=== PATIENT | male | born 1955 | race Caucasian/White ===

== ENCOUNTER 2020-02-08 16:16 | Emergency (ER) | payer OTHER ==
[~2020-02-08] VITALS: Ht 172.7 cm; Wt 65.9 kg
[2020-02-08 16:45] LABS: BASOPHILS % (AUTO) 0 % (0-10); EOSINOPHILS % (AUTO) 0 % (0-10); HEMATOCRIT 43 % (40-54); HEMOGLOBIN 14.4 G/DL (13.3-17.7); LYMPHOCYTES # (AUTO) 0.9 X 10^3 (1.0-4.0); LYMPHOCYTES % (AUTO) 6 % (12-44); MEAN CORPUSCULAR HEMOGLOBIN 32 PG (25-34); MEAN CORPUSCULAR HGB CONC 34 G/DL (32-36); MEAN CORPUSCULAR VOLUME 94 FL (80-99); MEAN PLATELET VOLUME 9.7 FL (7.4-10.4); MONOCYTES # (AUTO) 0.8 X 10^3 (0.0-1.0); MONOCYTES % (AUTO) 5 % (0-12); NEUTROPHILS # (AUTO) 13.8 X 10^3 (1.8-7.8); NEUTROPHILS % (AUTO) 89 % (42-75); PLATELET COUNT 440 10^3/uL (130-400); RED CELL DISTRIBUTION WIDTH 13.6 % (10.0-14.5); WHITE BLOOD COUNT 15.6 10^3/uL (4.3-11.0)
[2020-02-08] MEDS ORDERED: NS IV 1000 ML 1,000 ML IV SCH ×3 (16:45→20:00)
--- NOTE | 2020-02-08 16:52 | ED General ---
General Chief Complaint: Trauma-Non Activation Stated Complaint: FALL,GENERAL WEAKNESS Source of Information: Patient Exam Limitations: No Limitations (JUAN JOSE ANDERSON DO) History of Present Illness Date Seen by Provider: February 08, 2020 Time Seen by Provider: 16:40 Initial Comments The patient is a 64-year-old male presents for evaluation after a fall at home. He arrives via EMS. He has a history of 2 previous strokes and has right-sided weakness chronically. When he fell he was unable to get himself back up so he laid on the ground until his son found him the next day. He had a fall a few days ago which was similar but he was able to get himself back up. This time he was unable to do so. He is complaining of right wrist and right hip pain. He did not hit his head or lose consciousness. He has very poor hygiene and has a sore to the right hip which appears somewhat chronic. He is alert and answering questions appropriately. He denies any new weakness. He also denies chest pain or shortness of breath, abdominal or back pain, fevers or chills, nausea or vomiting, urinary symptoms, palpitations, or syncope. Timing/Duration: 24 Hours Severity: Moderate Associated Systoms: Other (right wrist/hand and right hip pain) (JUAN JOSE ANDERSON DO) Allergies and Home Medications Allergies Coded Allergies: Penicillins (Verified Allergy, Unknown, 02/08/20) Patient Home Medication List Home Medication List Reviewed: Yes (JUAN JOSE ANDERSON DO) Review of Systems Review of Systems Constitutional: weakness EENTM: no symptoms reported Respiratory: no symptoms reported Cardiovascular: no symptoms reported Gastrointestinal: no symptoms reported Genitourinary: no symptoms reported Musculoskeletal: joint pain (right wrist/hand/hip pain) Skin: no symptoms reported Psychiatric/Neurological: No Symptoms Reported Hematologic/Lymphatic: No Symptoms Reported Immunological/Allergic: no symptoms reported (JUAN JOSE ANDERSON DO) All Other Systems Reviewed Negative Unless Noted: Yes (JUAN JOSE ANDERSON DO) Past Saqviae-Fymtuj-Owmaax Hx Past Med/Social Hx: Reviewed Nursing Past Med/Soc Hx (JUAN JOSE ANDERSON DO) Physical Exam Vital Signs Vital Signs - First Documented 02/08/20 16:45 Temp 36.7 Pulse 117 Resp 20 B/P (MAP) 134/86 (102) Pulse Ox 98 O2 Delivery Room Air (BOSTNO PUENTE MD) Vital Signs Capillary Refill : (JUAN JOSE ANDERSON DO) Height, Weight, BMI Height: '" Weight: lbs. oz. kg; BMI Method: General Appearance: No Apparent Distress, Other (very poor personal hygiene) Eyes: Bilateral Eye Normal Inspection, Bilateral Eye PERRL, Bilateral Eye EOMI HEENT: PERRL/EOMI, Normal ENT Inspection, Pharynx Normal Neck: Full Range of Motion, Normal Inspection, Non Tender Respiratory: Lungs Clear, Normal Breath Sounds, No Accessory Muscle Use, No Respiratory Distress, Other (contusion to right lateral chest wall) Cardiovascular: Regular Rate, Rhythm, No Edema, No Murmur Gastrointestinal: Normal Bowel Sounds, No Pulsatile Mass, Non Tender, Soft Extremity: Normal Capillary Refill, Normal Inspection, Non Tender, Other (right hand/wrist tenderness, multiple contusions and abrasions, no dislocation/deformity, CMS intact, right hip with open chronic-appearing sore approx [id number], +right hip ttp laterally, no dislocation/deformity, CMS intact distally) Neurologic/Psychiatric: Alert, Oriented x3, No Motor/Sensory Deficits, Normal Mood/Affect Skin: Normal Color, Warm/Dry (JUAN JOSE ANDERSON DO) Focused Exam Lactate Level 02/08/20 16:25: Lactic Acid Level 2.72*H 02/08/20 18:25: Lactic Acid Level 2.00 (BOSTON PUENTE MD) Lactic Acid Level Laboratory Tests Test 02/08/20 18:25 Lactic Acid Level 2.00 MMOL/L (0.50-2.00) (BOSTON PUENTE MD) Progress/Results/Core Measures Suspected Sepsis SIRS Temperature: Pulse: Respiratory Rate: Laboratory Tests 02/08/20 16:25: White Blood Count 15.6H Blood Pressure / Mean: 02/08/20 16:25: Laboratory Tests 02/08/20 16:25: Creatinine 0.76, Platelet Count 440H, Total Bilirubin 0.8 (JUAN JOSE ANDERSON DO) Results/Orders Lab Results Laboratory Tests Test 02/08/20 16:25 02/08/20 18:25 02/08/20 21:20 Range/Units White Blood Count 15.6 H 4.3-11.0 10^3/uL Red Blood Count 4.56 4.35-5.85 10^6/uL Hemoglobin 14.4 13.3-17.7 G/DL Hematocrit 43 40-54 % Mean Corpuscular Volume 94 80-99 FL Mean Corpuscular Hemoglobin 32 25-34 PG Mean Corpuscular Hemoglobin Concent 34 32-36 G/DL Red Cell Distribution Width 13.6 10.0-14.5 % Platelet Count 440 H 130-400 10^3/uL Mean Platelet Volume 9.7 7.4-10.4 FL Neutrophils (%) (Auto) 89 H 42-75 % Lymphocytes (%) (Auto) 6 L 12-44 % Monocytes (%) (Auto) 5 0-12 % Eosinophils (%) (Auto) 0 0-10 % Basophils (%) (Auto) 0 0-10 % Neutrophils # (Auto) 13.8 H 1.8-7.8 X 10^3 Lymphocytes # (Auto) 0.9 L 1.0-4.0 X 10^3 Monocytes # (Auto) 0.8 0.0-1.0 X 10^3 Eosinophils # (Auto) 0.0 0.0-0.3 10^3/uL Basophils # (Auto) 0.0 0.0-0.1 10^3/uL Neutrophils % (Manual) 91 % Lymphocytes % (Manual) 5 % Monocytes % (Manual) 4 % Eosinophils % (Manual) 0 % Basophils % (Manual) 0 % Band Neutrophils 0 % Platelet Estimate INCREASED Blood Morphology Comment NORMAL Sodium Level 149 H 135-145 MMOL/L Potassium Level 3.4 L 3.6-5.0 MMOL/L Chloride Level 104 98-107 MMOL/L Carbon Dioxide Level 27 21-32 MMOL/L Anion Gap 18 H 5-14 MMOL/L Blood Urea Nitrogen 37 H 7-18 MG/DL Creatinine 0.76 0.60-1.30 MG/DL Estimat Glomerular Filtration Rate > 60 BUN/Creatinine Ratio 49 Glucose Level 147 H 70-105 MG/DL Lactic Acid Level 2.72 *H 2.00 0.50-2.00 MMOL/L Calcium Level 9.2 8.5-10.1 MG/DL Corrected Calcium 9.2 8.5-10.1 MG/DL Magnesium Level 2.3 1.6-2.4 MG/DL Total Bilirubin 0.8 0.1-1.0 MG/DL Aspartate Amino Transf (AST/SGOT) 64 H 5-34 U/L Alanine Aminotransferase (ALT/SGPT) 55 0-55 U/L Alkaline Phosphatase 69 40-136 U/L Total Protein 7.2 6.4-8.2 GM/DL Albumin 4.0 3.2-4.5 GM/DL Urine Color DAVID H Urine Clarity SL CLOUDY Urine pH 6.0 5-9 Urine Specific Elmore 1.025 H 1.016-1.022 Urine Protein 1+ H NEGATIVE Urine Glucose (UA) NEGATIVE NEGATIVE Urine Ketones 2+ H NEGATIVE Urine Nitrite NEGATIVE NEGATIVE Urine Bilirubin 1+ H NEGATIVE Urine Urobilinogen 0.2 < = 1.0 MG/DL Urine Leukocyte Esterase NEGATIVE NEGATIVE Urine RBC (Auto) 3+ H NEGATIVE Urine RBC >100 H /HPF Urine WBC 0-2 /HPF Urine Squamous Epithelial Cells NONE /HPF Urine Crystals NONE /LPF Urine Bacteria NEGATIVE /HPF Urine Casts NONE /LPF Urine Mucus MODERATE H /LPF Urine Culture Indicated NO (BOSTON PUENTE MD) My Orders Orders - BOSTON PUENTE MD Ct Head Wo (02/08/20 19:07) Catheter(Urinary) Care .0300, 1500 (02/08/20 19:52) Ns Iv 1000 Ml (Sodium Chloride 0.9%) (02/08/20 20:00) Troponin I Fs (02/08/20 21:54) (BOSTON PUENTE MD) Vital Signs/I&O 02/08/20 16:45 Temp 36.7 Pulse 117 Resp 20 B/P (MAP) 134/86 (102) Pulse Ox 98 O2 Delivery Room Air (BOSTON PUENTE MD) Vital Signs/I&O Capillary Refill : (JUAN JOSE ANDERSON DO) Progress Note : Progress Note @1800 - Patient updated on lab and imaging results. He is noted to be quite tachycardic. A repeat EKG other performed. Second liter of normal saline has been ordered. Workup fails reveal any emergent pathology at this time. Patient care will be handed over to Dr. Boston Puente at this time. (JUAN JOSE ANDERSON DO) Progress Note : Progress Note [address] Puente. Pt with fall last night at home. He states he couldn't get up all night and just laid on the floor. History of prior CVA with residual deficits on the right side. He said the felt weaker again on the right side last night. Discussed with patient that he will likely need hospitalization for further observation and treatment. Still awaiting further test results. XR all negative for acute injury. 2200 Pt was not able to urinate. Farooq was placed. Blood clot was irrigated enabling better urine output. CT and XR negative for acute injury. Family wanted patient transferred to [facility] for further treatment. Discussed with Dr. Chao at [facility] who accepts transfer. (BOSTON PUENTE MD) ECG EKG : Comment @1654 - sinus tachycardia, rate of 108, normal axis, no acute ischemic findings noted, evidence of left atrial enlargement is present, no STEMI, reviewed and interpreted by myself (JUAN JOSE ANDERSON DO) Departure Impression Primary Impression: Fall Additional Impressions: Dehydration Urinary retention Hematuria Hypernatremia Disposition: XFER SHT-TRM HOSP Condition: Stable Transfer Transfer Reason: Patient preference Time Spoke to Accepting Phy: 22:05 Transfer Progress Notes Discussed with Dr. Eubanks at [facility] who accepts transfer. Method of Transfer: EMS (BOSTON PUENTE MD) Departure-Patient Inst. Referrals: JOYCE FABIAN MD (PCP/Family) Primary Care Physician JUAN JOSE ANDERSON DO February 08, 2020 16:52 BOSTON PUENTE MD February 08, 2020 18:54
[2020-02-08 16:55] LABS: BAND NEUTROPHILS 0 %; LYMPHOCYTES % (MANUAL) 5 %; NEUTROPHILS % (MANUAL) 91 %
[2020-02-08 16:56] LABS: BASOPHILS % (MANUAL) 0 %; EOSINOPHILS % (MANUAL) 0 %; MONOCYTES % (MANUAL) 4 %; PLATELET ESTIMATE INCREASED; RBC MORPH NORMAL
--- OUTSIDE RECORDS SUMMARY | 2020-02-08 17:02 | XMS REPORT | Clinical Summary ---
Author Author Admin, Erwin ARREDONDO Organization [facility] Address Unknown Phone Unavailable Allergies, Adverse Reactions, Alerts Allergy Name Reaction Description Start Date Severity Status Pr ovider PENICILLIN hives Moderate Active Sonja Elder Conditions or Problems Problem Name Problem Code Onset Date Status Entry Date Provider Comment Standard Description Annotate Elevated prostate specific antigen [PSA] 790.93 Active Jan Ochoa MD Elevated prostate specific antigen [PSA] Medication List Medication Instructions Start Date Stop Date Generic Name NDC Status Provider Patient Instruction GARLIC OIL 2 MG ORAL CAPS 1 cap by mouth daily GA RLIC 98468002284 Active Sonja Elder Active VITAMIN C 500 MG TAB 1 pill twice daily ASCORBIC ACID 11965509061 Active Sonja Elder Active MULTIVITAMIN GUMMIES ADULT CHEW 1 chew by mouth daily MULTIPLE VITAMINS-MINERALS 73293941292 Active Sonja Elder Active VITAMIN D3 2000 UNIT TABS 1 daily, for vitamin D deficiency CHOLECALCIFEROL 49308226608 Active Sonja Elder Active ASPIRIN 81 MG CHEW TAB 1 tablet by mouth daily PIRIN 81219363101 Active Sonja Elder Active MAGNESIUM OXIDE 400 MG CAPS 1 po bid MAGNESIUM O XIDE 18065300312 Active Sonja Elder Active PROAIR HFA 108 (90 BASE) MCG/ACT AERS 2 puffs four times a d ay as needed ALBUTEROL SULFATE 20675799235 Active Sonja Elder Active SILDENAFIL CITRATE 20 MG ORAL TABS 5 tablet about 60 minutes before need SILDENAFIL CITRATE 16960281943 Active Sonja Elder Active SYMBICORT 160-4.5 MCG/ACT AERO 2 puff BID BUDESONIDE-FORMOTEROL FUMARATE 10394504556 Active Sonja Elder Active LISINOPRIL-HYDROCHLOROTHIAZIDE 20-12.5 MG TABS 1 tab by mouth da pedro LISINOPRIL-HYDROCHLOROTHIAZIDE 60478382737 Active Sonja Elder Active DIPYRIDAMOLE 75 MG ORAL TABS 1 tab by mouth daily DIPYRIDAMOLE 46223104247 Active Sonja Elder Active PRAVASTATIN SODIUM 20 MG TABS 1 tablet by mouth daily at bedtime 20 27/12/13 PRAVASTATIN SODIUM 43731281124 Active Sonja Elder Active Advance Directives Directive Description Start Date PERMISSION TO SHARE Encounters Code Encounter Date Provider Facility CPT-15910 Level 3 New Patient 15:55:32 CDT Jan ramirez MD [facility]
--- OUTSIDE RECORDS SUMMARY | 2020-02-08 17:02 | XMS REPORT ---
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 side I69.351 Active 407068622 Problem Chronic pulmonary hypertension I27.20 11 Mar, 2 016 Active Problem Cerebral infarction I63.9 Mar, Active 829278923 Problem Hypercholesteremia E78.00 Active 2 92008760 Problem Elevated PSA R97.20 Active 4873970 05 ALLERGIES No Information ENCOUNTERS Encounter Location Date Diagnosis [address] [id number] [address] Dec, [address] [id number] [address] Nov, Mixed hyperlipidemia E78.2 ; COPD (chronic obstructive pulmonary disease) J44.9 and Hemiplegia and hemiparesis following cerebral infarction affecting right dominant side I69.[address] [id number] [address] Jul, [address] [id number] [address] Jun, [address] [id number] [address] May, [facility] [address] [id number] [address] May, [facility] [address] [id number] [address] May, [facility] [address] [id number], [place] [address] Apr, Hemiplegia and hemiparesis f ollowing cerebral infarction affecting right dominant side I69.351 ; Hypercholesteremia E78.00 ; Benign hypertension I10 and Chronic pulmonary hypertension I27.20 [facility] [address] [id number], [place] [address] Apr, Hypercholesteremia E78.00 [facility] SIENA COLÓN [address] [id number], [place] [address] Mar, [facility] [address] [id number], [place] [address] Feb, [facility] [address] [id number], [place] [address] Feb, COPD (chronic obstructive pu lmonary disease) J44.9 [facility] [address] [id number], [place] [address] Feb, Hypercholesteremia E78.00 ; Hemiplegia and hemiparesis following cerebral infarction affecting right dominant side I69.351 and Hypertension I10 [facility] [address] [id number], [place] [address] Nov, [facility] SIENA COLÓN [address] [id number], [place] [address] Oct, Hypercholesteremia E78.00 ; Elevated PSA R97.20 ; COPD (chronic obstructive pulmonary disease) J44.9 ; Hypertension I10 and Hemiplegia and hemiparesis following cerebral infarction affecting right dominant side I69.351 [facility] [place] [address] [facility] [id number] [address] Aug, [facility] [place] [address] [facility] [id number] [address] [place] [address] Jun, [facility] [place] [address] [facility] [id number] [address] [place] [address] Jul, [facility] [place] [address] [facility] [id number] [address] [place] [address] Apr, IMMUNIZATIONS No Known Immunizations SOCIAL HISTORY Never Assessed REASON FOR VISIT lvml PLAN OF CARE VITAL SIGNS MEDICATIONS Unknown Medications RESULTS No Results PROCEDURES No Known procedures INSTRUCTIONS MEDICATIONS ADMINISTERED No Known Medications MEDICAL (GENERAL) HISTORY Type Description Date Medical History Hypertension Medical History Hypercholesteremia Medical History COPD (chronic obstructive pulmonary dise ase) Medical History cva 2012 weakness right side Surgical History Stomach Ulcer Hospitalization History COPD
--- OUTSIDE RECORDS SUMMARY | 2020-02-08 17:02 | XMS REPORT | Clinical Summary ---
Author Author Admin, Erwin ARREDONDO Organization [facility] Address Unknown Phone Unavailable Allergies, Adverse [...] 1 cap by mouth daily GA RLIC 81439355856 Active Sonja Elder Active VITAMIN C 500 MG TAB 1 pill twice daily ASCORBIC ACID 24297741510 Active Sonja Elder Active MULTIVITAMIN GUMMIES ADULT CHEW 1 chew by mouth daily MULTIPLE VITAMINS-MINERALS 43121134981 Active Sonja Elder Active VITAMIN D3 2000 UNIT TABS 1 daily, for vitamin D deficiency CHOLECALCIFEROL 07251301920 Active Sonja Elder Active ASPIRIN 81 MG CHEW TAB 1 tablet by mouth daily PIRIN 98844395045 Active Sonja Elder Active MAGNESIUM OXIDE 400 MG CAPS 1 po bid MAGNESIUM O XIDE 76977197738 Active Sonja Elder Active PROAIR HFA 108 (90 BASE) MCG/ACT AERS 2 puffs four times a d ay as needed ALBUTEROL SULFATE 59901957137 Active Sonja Elder Active SILDENAFIL CITRATE 20 MG ORAL TABS 5 tablet about 60 minutes before need SILDENAFIL CITRATE 31867849695 Active Sonja Elder Active SYMBICORT 160-4.5 MCG/ACT AERO 2 puff BID BUDESONIDE-FORMOTEROL FUMARATE 45693821648 Active Sonja Elder Active LISINOPRIL-HYDROCHLOROTHIAZIDE 20-12.5 MG TABS 1 tab by mouth da pedro LISINOPRIL-HYDROCHLOROTHIAZIDE 66926783297 Active Sonja Elder Active DIPYRIDAMOLE 75 MG ORAL TABS 1 tab by mouth daily DIPYRIDAMOLE 46723898348 Active Sonja Elder Active PRAVASTATIN SODIUM 20 MG TABS 1 tablet by mouth daily at bedtime 20 27/12/13 PRAVASTATIN SODIUM 38654951141 Active Sonja Elder Active Advance Directives Directive Description Start Date PERMISSION TO SHARE Vital Signs Date Name Value Unit Range Description blood pressure, diastolic - 8462-4 70 mm[Hg] BP hernández blood pressure, systolic - 8480-6 120 mm[Hg] BP sys height E&M - 8302-2 67 [in_us] Bdy h eight pulse rate E&M - 8867-4 75 /min H eart rate temperature E&M 98.5 [degF] Body temp erature weight E&M - 3141-9 140 [lb_av] Weigh t Measured Encounters Code Encounter Date Provider Facility CPT-07700 Level 3 New Patient 15:55:32 CDT Jan ramirez MD [facility]
--- OUTSIDE RECORDS SUMMARY | 2020-02-08 17:02 | XMS REPORT | Clinical Summary ---
Demographics Home Phone Preferred Language Unknown Marital Status Unknown Mosque Affiliation Unknown Race Unknown Ethnic Group Unknown Author Author Admin, Erwin ARREDONDO Organization [facility] Address Unknown Phone Unavailable Allergies, Adverse Reactions, Alerts Allergy Name Reaction Description Start Date Severity Status Pr ovider PENICILLIN hives Moderate Active Sonja Elder Conditions or Problems Problem Name Problem Code Onset Date Status Entry Date Provider Comment Standard Description Annotate Problems Unknown Active Medication List Medication Instructions Start Date Stop Date Generic Name NDC Status Provider Patient Instruction GARLIC OIL 2 MG ORAL CAPS 1 cap by mouth daily GA RLIC 27354927000 Active Sonja Elder Active VITAMIN C 500 MG TAB 1 pill twice daily ASCORBIC ACID 01986981706 Active Sonja Elder Active MULTIVITAMIN GUMMIES ADULT CHEW 1 chew by mouth daily MULTIPLE VITAMINS-MINERALS 60395066961 Active Sonja Elder Active VITAMIN D3 2000 UNIT TABS 1 daily, for vitamin D deficiency CHOLECALCIFEROL 49856821666 Active Sonja Elder Active ASPIRIN 81 MG CHEW TAB 1 tablet by mouth daily PIRIN 43083131795 Active Sonja Elder Active MAGNESIUM OXIDE 400 MG CAPS 1 po bid MAGNESIUM O XIDE 55086900028 Active Sonja Elder Active PROAIR HFA 108 (90 BASE) MCG/ACT AERS 2 puffs four times a d ay as needed ALBUTEROL SULFATE 78421200623 Active Sonja Elder Active SILDENAFIL CITRATE 20 MG ORAL TABS 5 tablet about 60 minutes before need SILDENAFIL CITRATE 10980818973 Active Sonja Elder Active SYMBICORT 160-4.5 MCG/ACT AERO 2 puff BID BUDESONIDE-FORMOTEROL FUMARATE 35906318335 Active Sonja Elder Active LISINOPRIL-HYDROCHLOROTHIAZIDE 20-12.5 MG TABS 1 tab by mouth da pedro LISINOPRIL-HYDROCHLOROTHIAZIDE 20861532440 Active Sonja Elder Active DIPYRIDAMOLE 75 MG ORAL TABS 1 tab by mouth daily DIPYRIDAMOLE 41071495700 Active Sonja Cooper Active PRAVASTATIN SODIUM 20 MG TABS 1 tablet by mouth daily at bedtime 20 27/12/13 PRAVASTATIN SODIUM 37017686661 Active Sonja Cooper Active
--- OUTSIDE RECORDS SUMMARY | 2020-02-08 17:02 | XMS REPORT | Clinical Summary ---
Author Author Admin, Erwin Bernstein Organization [facility] Address Unknown Phone Unavailable Allergies, [...] 1 cap by mouth daily GA RLIC 14994075576 Active Sonja Elder Active VITAMIN C 500 MG TAB 1 pill twice daily ASCORBIC ACID 02367432621 Active Sonja Elder Active MULTIVITAMIN GUMMIES ADULT CHEW 1 chew by mouth daily MULTIPLE VITAMINS-MINERALS 66171169001 Active Sonja Elder Active VITAMIN D3 2000 UNIT TABS 1 daily, for vitamin D deficiency CHOLECALCIFEROL 64885488179 Active Sonja Elder Active ASPIRIN 81 MG CHEW TAB 1 tablet by mouth daily PIRIN 78845617384 Active Sonja Elder Active MAGNESIUM OXIDE 400 MG CAPS 1 po bid MAGNESIUM O XIDE 88949654680 Active Sonja Elder Active PROAIR HFA 108 (90 BASE) MCG/ACT AERS 2 puffs four times a d ay as needed ALBUTEROL SULFATE 81289569711 Active Sonja Elder Active SILDENAFIL CITRATE 20 MG ORAL TABS 5 tablet about 60 minutes before need SILDENAFIL CITRATE 15860006673 Active Sonja Elder Active SYMBICORT 160-4.5 MCG/ACT AERO 2 puff BID BUDESONIDE-FORMOTEROL FUMARATE 52207759492 Active Sonja Elder Active LISINOPRIL-HYDROCHLOROTHIAZIDE 20-12.5 MG TABS 1 tab by mouth da pedro LISINOPRIL-HYDROCHLOROTHIAZIDE 19316276947 Active Sonja Elder Active DIPYRIDAMOLE 75 MG ORAL TABS 1 tab by mouth daily DIPYRIDAMOLE 58066861193 Active Sonja Elder Active PRAVASTATIN SODIUM 20 MG TABS 1 tablet by mouth daily at bedtime 20 27/12/13 PRAVASTATIN SODIUM 00495128078 Active Sonja Elder Active Advance Directives Directive Description Start Date PERMISSION TO SHARE Vital Signs Date Name Value Unit Range Description blood pressure, diastolic 71 mm[Hg] BP hernández blood pressure, systolic 115 mm[Hg] BP sys pulse rate E&M 71 /min Heart rate temperature E&M 98.7 [degF] Body temp erature weight E&M 140 [lb_av] Weight Measure d blood pressure, diastolic 70 mm[Hg] BP hernández blood pressure, systolic 120 mm[Hg] BP sys height E&M 67 [in_us] Bdy height pulse rate E&M 75 /min Heart rate temperature E&M 98.5 [degF] Body temp erature weight E&M 140 [lb_av] Weight Measure d Encounters Code Encounter Date Provider Facility CPT-22475 Level 3 Est. Patient 14:55:16 CDT Jan guzman MD [facility] CPT-38026 Level 3 New Patient 15:55:32 LOUISA ramirez MD [facility]
--- OUTSIDE RECORDS SUMMARY | 2020-02-08 17:02 | XMS REPORT | Clinical Summary ---
Author Author Admin, Erwin Bernstein Organization [facility] Address Unknown Phone Unavailable Allergies, Adverse [...] 1 cap by mouth daily GA RLIC 07579167339 Active Sonja Elder Active VITAMIN C 500 MG TAB 1 pill twice daily ASCORBIC ACID 52697302349 Active Sonja Elder Active MULTIVITAMIN GUMMIES ADULT CHEW 1 chew by mouth daily MULTIPLE VITAMINS-MINERALS 62846861559 Active Sonja Elder Active VITAMIN D3 2000 UNIT TABS 1 daily, for vitamin D deficiency CHOLECALCIFEROL 70323557119 Active Sonja Elder Active ASPIRIN 81 MG CHEW TAB 1 tablet by mouth daily PIRIN 71255919077 Active Sonja Elder Active MAGNESIUM OXIDE 400 MG CAPS 1 po bid MAGNESIUM O XIDE 04909420556 Active Sonja Elder Active PROAIR HFA 108 (90 BASE) MCG/ACT AERS 2 puffs four times a d ay as needed ALBUTEROL SULFATE 85719388879 Active Sonja Elder Active SILDENAFIL CITRATE 20 MG ORAL TABS 5 tablet about 60 minutes before need SILDENAFIL CITRATE 81655448452 Active Sonja Elder Active SYMBICORT 160-4.5 MCG/ACT AERO 2 puff BID BUDESONIDE-FORMOTEROL FUMARATE 70681080779 Active Sonja Elder Active LISINOPRIL-HYDROCHLOROTHIAZIDE 20-12.5 MG TABS 1 tab by mouth da pedro LISINOPRIL-HYDROCHLOROTHIAZIDE 29982509855 Active Sonja Elder Active DIPYRIDAMOLE 75 MG ORAL TABS 1 tab by mouth daily DIPYRIDAMOLE 21012215265 Active Sonja Elder Active PRAVASTATIN SODIUM 20 MG TABS 1 tablet by mouth daily at bedtime 20 27/12/13 PRAVASTATIN SODIUM 86464648668 Active Sonja Elder Active Advance Directives Directive [...] d Encounters Code Encounter Date Provider Facility CPT-12036 Level 3 Est. Patient 14:55:16 CDT Jan guzman MD [facility] [place] CPT-92085 Level 3 New Patient 15:55:32 LOUISA ramirez MD [facility]
[2020-02-08 17:03] LABS: ALANINE AMINOTRANSFERASE 55 U/L (0-55); ALKALINE PHOSPHATASE 69 U/L (40-136); BILIRUBIN,TOTAL 0.8 MG/DL (0.1-1.0); BUN/CREATININE RATIO 49; CALCIUM 9.2 MG/DL (8.5-10.1); CARBON DIOXIDE 27 MMOL/L (21-32); CHLORIDE 104 MMOL/L (98-107); CREATININE SERUM 0.76 MG/DL (0.60-1.30); GFR ESTIMATED > 60; GLUCOSE 147 MG/DL (70-105); MAGNESIUM 2.3 MG/DL (1.6-2.4); POTASSIUM 3.4 MMOL/L (3.6-5.0); SODIUM 149 MMOL/L (135-145); TOTAL PROTEIN 7.2 GM/DL (6.4-8.2)
--- NOTE | 2020-02-08 17:30 | Diagnostic Imaging Report ---
INDICATION: Found down. FINDINGS: Three views. AP pelvis shows SI joints and pubic symphysis in good alignment. Femoral heads are normal articulation. Two views of the right hip show no fractures. Femoral head is smooth. No hypertrophic changes. IMPRESSION: No acute abnormalities demonstrated in the pelvis or right hip. Dictated by: Dictated on workstation # [id number]
--- NOTE | 2020-02-08 17:31 | Diagnostic Imaging Report ---
INDICATION: Right wrist injury. FINDINGS: Three views of the right wrist show no fracture, dislocation or other acute abnormalities. IMPRESSION: Negative right wrist. Dictated by: Dictated on workstation # [id number]
--- NOTE | 2020-02-08 17:31 | Diagnostic Imaging Report ---
INDICATION: Patient found down. Portable chest at 04:57 p.m. FINDINGS: Heart size and pulmonary vascularity are normal. Lungs are clear. There are no effusions or pneumothoraces. IMPRESSION: Negative chest. Dictated by: Dictated on workstation # [id number]
--- NOTE | 2020-02-08 17:32 | Diagnostic Imaging Report ---
INDICATION: Right hand injury. EXAMINATION: Three views of the right hand were obtained. FINDINGS: Degenerative changes of the 2nd and 3rd metacarpophalangeal joints with slight ulnar deviation. There is no fracture or dislocation. IMPRESSION: Degenerative changes of the 2nd and 3rd metacarpophalangeal joints. No acute abnormality is seen. Dictated by: Dictated on workstation # [id number]
--- NOTE | 2020-02-08 19:30 | NUR ---
pt was incontinent of stool and urine. pt. was cleaned and he has redness in the groin area, and his bottom is red as well. pt. has a skin tear on his left elbow. pt. has bruising all over his body. pt. has a large inflamed area on the right hip with black and red area.
--- NOTE | 2020-02-08 19:32 | Diagnostic Imaging Report ---
PROCEDURE: CT head without contrast. TECHNIQUE: Multiple contiguous axial images were obtained through the brain without the use of intravenous contrast. Auto Exposure Controls were utilized during the CT exam to meet ALARA standards for radiation dose reduction. INDICATION: History of previous stroke. Fall. No previous studies currently available for comparison. FINDINGS: There is diffuse cortical atrophy with prominence of the ventricles. No evidence of intracranial hemorrhage. There is considerable artifact present due to motion. No extra-axial fluid collection. No evidence of focal cortical edema. There are periventricular white matter changes bilaterally. Basal cistern appears normal. CP angles are normal. There is a small cystic change noted in the brainstem along the ana maria on the left. Pituitary is not enlarged. Orbital contents are symmetrical. Mastoid air cells are clear. IMPRESSION: 1. Limited exam with artifact from motion. No acute abnormalities noted. Cortical atrophy with white matter changes consistent with chronic small vessel disease. 2. Small cystic change in the ana maria on the left within the brainstem likely secondary to old infarct. Dictated by: Dictated on workstation # [id number]
--- NOTE | 2020-02-08 20:29 | NUR ---
PT. SLEEPING AT THIS TIME.
--- NOTE | 2020-02-08 21:28 | NUR ---
FLUSHED THE PALMA AFTER REPLACING IT WITH A COUDEA THERE WERE VERY LARGE CLOTS AND NO URINE. HAD BLADDER SCANNED THE PT. AND THERE WAS 350 CC OF URINE. AFTER IRRIGATING THE CATH AND REMOVING THE LARGE CLOTS URINE RETURN TO THE BAG WAS FLOWING EASILY.
[2020-02-08 21:37] LABS: BILIRUBIN,URINE 1+ (NEGATIVE); CLARITY,URINE SL CLOUDY; COLOR,URINE AMBER; GLUCOSE, URINE (UA) NEGATIVE (NEGATIVE); KETONES,URINE 2+ (NEGATIVE); LEUKOCYTE ESTERASE ,URINE NEGATIVE (NEGATIVE); NITRITE,URINE NEGATIVE (NEGATIVE); PROTEIN,URINE 1+ (NEGATIVE)
[2020-02-08 21:38] LABS: BACTERIA,URINE NEGATIVE /HPF; RBC,URINE >100 /HPF; WBC,URINE 0-2 /HPF
--- NOTE | 2020-02-08 21:39 | NUR ---
PT'S SON CALLED AND WANTED THE PT SENT TO [facility]. PT AND DOCTOR AWARE.
[2020-02-08 22:05] LABS: CREATINE KINASE 3048 U/L (30-200)
--- NOTE | 2020-02-08 22:28 | NUR ---
PT. WILL BE TRANSFERRED TO [facility]. WAITING FOR A ROOM NUMBER AND REPORT THEN THE PT WILL BE READY TO BE TRANSFERRED.
[2020-02-08 23:13] VITALS: BP 152/79
== END 2020-02-08 23:13 | disposition short-term general hospital (02) ==
LOC: ER FS 16:18
DX: S60.211A Contusion of right wrist, initial encounter (principal); S20.211A Contusion of right front wall of thorax, initial encounter; E86.0 Dehydration; R33.9 Retention of urine, unspecified; R31.9 Hematuria, unspecified; E87.0 Hyperosmolality and hypernatremia; R29.6 Repeated falls; Z86.73 Personal history of transient ischemic attack (TIA), and cerebral infarction without residual deficits; Z88.0 Allergy status to penicillin; W19.XXXA Unspecified fall, initial encounter
CPT/HCPCS: 36415; 51702; 70450; 71045; 73110; 73130; 73502; 80053; 81000; 82550; 83605; 83735; 84484; 85007; 85027; 93005; 96360; 96361